=== PATIENT | male | born 1955 | race African-American/Black ===

== ENCOUNTER 2020-04-11 11:56 | Emergency (ER) | payer MEDICARE, OTHER ==
--- NOTE | 2020-04-11 12:10 | ED.PDOC ---
History of Present Illness - General Chief Complaint: General Time Seen by Provider: 04/11/20 12:06 Source: patient, RN notes reviewed, Vital Signs reviewed, EMS notes reviewed Exam Limitations: no limitations - History of Present Illness Initial Comments: Patient is a 65-year-old male with past medical history of paroxysmal A. fib, on amiodarone and Eliquis, and metastatic prostate cancer. He presented to the [place] ED last night for generalized weakness. He was found to be positive for COVID-19 and have a hemoglobin level of 6. White blood cell count was 17,000 and urine shows evidence of UTI and was given IV Rocephin. He also had a CT of the chest that showed evidence of metastatic disease but no acute findings. He was transfused 2 units of packed red cells and transferred here to be treated for Covid. Metabolic panel was unremarkable. Patient denies any blood in his stool. He does state he is on a blood thinner for atrial fibrillation. The plan was discussed with our hospitalist and patient was sent to ED to evaluate prior to admission. Patient denies any shortness of breath at this time. He denies any chest pain, fever or abdominal pain. Allergies/Adverse Reactions: Allergies NO KNOWN ALLERGY Allergy (Verified 04/11/20 12:29) Home Medications: Ambulatory Orders Cephalexin Monohydrate [Keflex] 500 mg PO QID 10 Days #40 cap 04/11/20 Methylprednisolone [Medrol Dose Wei] 4 mg PO DAILY 6 Days #21 tab 04/11/20 Review of Systems - Review of Systems Constitutional: States: malaise. Denies: chills, fever EENTM: Denies: blurred vision, ear pain, nose congestion Respiratory: Denies: short of breath Cardiology: Denies: chest pain, palpitations, syncope Gastrointestinal/Abdominal: Denies: abdominal pain, diarrhea, vomiting Musculoskeletal: States: other - chronic pain in bilateral knees Neurological: Denies: headache, paresthesia Hematologic/Lymphatic: Denies: easy bleeding, easy bruising All other Systems: Reviewed and Negative Family Medical History - Family History Mother Family History: No Known Physical Exam - Physical Exam General Appearance: Alert, Comfortable Ears, Nose, Throat: normal pharynx Neck: non-tender, full range of motion, supple Respiratory: chest non-tender, lungs clear, normal breath sounds, no respiratory distress Cardiovascular/Chest: regular rate, rhythm, no murmur Gastrointestinal/Abdominal: non tender, soft, no pulsatile mass Back Exam: no CVA tenderness, no vertebral tenderness Extremity: non-tender, no calf tenderness Neurologic: no motor/sensory deficits, alert, normal mood/affect Skin Exam: normal color, warm/dry Progress - Results/Orders Results/Orders: EKG NSR, rate 93, nml intervals, nonspecific ST abnormality Reviewed labs from transferring facility. Respiratory panel was positive only for Covid. White blood cell count 17,000, hemoglobin 6, platelets 265, sodium 136, potassium 3.8, chloride 105, BUN 22, creatinine 1.5, glucose 141, urinalysis shows 30-50 white blood cells. He was treated with 1 g of IV Rocephin and received 2 units of packed red blood cells. CT of the showed metastatic disease, but no sign of infection. D/W hospitalist, Yaquelin Agosto. Pt has been accepted to [facility]. They will be able to take him on COVID wing for continued treatmentand supplemental O2 as needed. Hospital has been working on this case. Pt has been stable in ED. No sign of GI bleed. H/H improved post infusion. Pt agrees with transfer to [facility] for continue care of Covid and UTI and to begin PT. Treated with Decadron and Remdesivir in ED. Previously given Rocephin for UTI at previous facility. No hypoxia or respiratory distress. Will continue supplemental O2 as need at SNF. Will trat with medrol dose pack and keflex. 04/11/20 12:19 Remdesivir 200 mg Sodium Chloride 0.9% 250Ml [NS 250ml] 250 ml IVPB ONCE Laboratory Results - last 24 hr 04/11/20 12:35 WBC 13.5 H RBC 3.30 L Hgb 7.5 L* Hct 24.1 L MCV 73.2 L MCH 22.6 L MCHC 30.9 L RDW 21.9 H Plt Count 255 MPV 7.8 Absolute Neuts (auto) 12.90 H Absolute Lymphs (auto) 0.40 L Absolute Monos (auto) 0.10 L Absolute Eos (auto) 0.00 Absolute Basos (auto) 0.00 Neutrophils % 96.0 H Neutrophils % (Manual) 70.0 Lymphocytes % 2.9 L Lymphocytes % (Manual) 1.0 Monocytes % 0.9 L Monocytes % (Manual) 0.0 Eosinophils % 0.1 L Basophils % 0.1 Band Neutrophils 26.0 H* Metamyelocytes 3.0 H Hypochromia 3+ Platelet Estimate Normal Polychromasia 1+ Poikilocytosis 2+ Anisocytosis 3+ Microcytosis 1+ Departure - Departure Clinical Impression: COVID-19, Prostate cancer metastatic to bone Urinary tract infection Qualifiers: Urinary tract infection type: acute cystitis Hematuria presence: without hematuria Qualified Code(s): N30.00 - Acute cystitis without hematuria Anemia Qualifiers: Anemia type: unspecified type Qualified Code(s): D64.9 - Anemia, unspecified Time of Disposition: 13:14 Disposition: Discharge to SNF Condition: Fair Departure Forms: ED Discharge - Pt. Copy, Patient Portal Self Enrollment Instructions: Coronavirus Disease 2019 (COVID-19), Urinary Tract Infection, Adult (DC) Diet: resume usual diet Activity: as per physical therapy Prescriptions: Cephalexin Monohydrate [Keflex] 500 mg PO QID 10 Days #40 cap Methylprednisolone [Medrol Dose Wei] 4 mg PO DAILY 6 Days #21 tab Home Medications: Ambulatory Orders Cephalexin Monohydrate [Keflex] 500 mg PO QID 10 Days #40 cap 04/11/20 Methylprednisolone [Medrol Dose Wei] 4 mg PO DAILY 6 Days #21 tab 04/11/20
[2020-04-11] MEDS ORDERED: REMDESIVIR 200 MG in SODIUM CHLORIDE 0.9% 250ML 250 ML IVPB ONE (12:19)
[2020-04-11] MEDS ORDERED: DEXAMETHASONE INJ 10 MG/ML VIAL IV ONE (12:19)
[2020-04-11 12:42] VITALS: TEMP 97.7
[2020-04-11 19:25] VITALS: BP 132/79; O2SAT 97
== END 2020-04-11 15:15 ==
LOC: ER 11:56
DX: U07.1 COVID-19 (principal); N30.00 Acute cystitis without hematuria; Z85.46 Personal history of malignant neoplasm of prostate; C79.51 Secondary malignant neoplasm of bone; D63.0 Anemia in neoplastic disease
CPT/HCPCS: 36415; 85025; 93005; J1100; J7050

== ENCOUNTER 2020-04-24 15:56 | Emergency (ER) | payer MEDICARE ==
--- NOTE | 2020-04-24 16:02 | ED.PDOC ---
History of Present Illness - General Time Seen by Provider: 04/24/20 16:01 Source: patient Additional Information: PATIENT SENT FOR ABNORMAL LAB, NO OTHER REASON PER EMS - History of Present Illness Initial Comments: PATIENT WITH METASTATIC BONE CANCER, SENT FROM THE CARE HOME FOR CHRONIC ANEMIA. Allergies/Adverse Reactions: Allergies NO KNOWN ALLERGY Allergy (Verified 04/11/20 12:29) Home Medications: Ambulatory Orders Cephalexin Monohydrate [Keflex] 500 mg PO QID 10 Days #40 cap 04/11/20 Methylprednisolone [Medrol Dose Wei] 4 mg PO DAILY 6 Days #21 tab 04/11/20 Past Medical History (General) - Patient Medical History Hx Cancer: Yes - prostate, metastatic Family Medical History - Family History Mother Family History: No Known Progress - Progress Progress: 04/24/20 17:45 DISCUSSED ON THE PHONE WITH DR AREVALO X [address] HAYWOOD. PATIENT WITH ASYMPTMATIC APLASTIC ANEMIA AND WILL NEED TRANSFUSED AT SOME POINT, BUT IS NOT A MEDICAL EMERGENCY AND CAN BE SCHEDULED THRU OUT PATIENT INFUSION. OFFERED TO SET THIS UP FOR DR AREVALO, THE PATIENT SAID THAT HE WOULD PREFER THIS. DR. AREVALO STATES HE WANTS TO TRANSFER PATIENT TO [place] TO RECEIVE TRANSFUSION. DR AREVALO ACKNOLEDGES HE THAT IT NOT A MEDICAL EMERGENCY, BUT HE STATES HE WANTS TO TRANSFER FOR SOCIAL REASONS, "TO GET THE PATIENT CLOSER TO FAMILY" PATIENT STATES HE PREFERS TO STAY HERE AT [facility] AND GET TRANFUSED TOMORROW. DR. AREVALO CALLED BACK AND TALKED TO PATIENT, NOW PATIENT WANTS TO BE TRANFERED TO [place], "TO BE CLOSER TO FAMILY". AT PATIENTS REQUEST, HE IS BEING TRANFERED TO [facility]. Departure - Departure Clinical Impression: Chronic anemia, Prostate cancer metastatic to bone Time of Disposition: 16:56 Disposition: Transfer to Hospital Condition: Good Instructions: Aplastic Anemia Referrals: Shonna Arevalo MD [Physicians] - 1-2 Weeks ELMER ZAMBRANO [Referring] - 1-2 Weeks Home Medications: Ambulatory Orders Cephalexin Monohydrate [Keflex] 500 mg PO QID 10 Days #40 cap 04/11/20 Methylprednisolone [Medrol Dose Wei] 4 mg PO DAILY 6 Days #21 tab 04/11/20 Additional Instructions: ATTEMPTED TO CONTACT DR AREVALO OFFICE USING PHYSICIAN LINE, NO ANSWER. CONTACTED DR ZAMBRANO, STATES HE WILL SET UP OUTPATIENT TRANSFUSION FOR THE PATIENT. PATIENT DOES NOT NEED EMERGENCY TRANSFUSION TODAY. HE IS ASYMPTOMATIC.
[2020-04-24 21:14] VITALS: BP 115/70; TEMP 97.4; O2SAT 97
== END 2020-04-24 20:45 | disposition short-term general hospital (02) ==
LOC: ER 15:56
DX: D63.0 Anemia in neoplastic disease (principal); C61 Malignant neoplasm of prostate; C79.51 Secondary malignant neoplasm of bone

== ENCOUNTER → 2020-05-30 | Outpatient (CLI) | payer MEDICARE, OTHER | LOC: GOCC 11:48 | PROVIDERS: ATTEND General Practice | DX: R34 Anuria and oliguria (principal) ==

== ENCOUNTER 2020-06-09 09:23 | Emergency (ER) | payer MEDICARE, OTHER ==
--- NOTE | 2020-06-09 09:48 | ED.PDOC ---
History of Present Illness - General Chief Complaint: Neuro Symptoms/Deficits Time Seen by Provider: 06/09/20 09:24 Source: patient, RN notes reviewed, Vital Signs reviewed, EMS notes reviewed, EMS, [facility] records, old records Exam Limitations: no limitations - History of Present Illness Initial Comments: Pleasant 65 yo M hx of anemia, prostate cancer, afib on amiodarone, DM comes in with 3 days of not feel well and AMS. Complains of pain over soreness over sacrum which he has a known decubitus ulcer. Denies chest pain, shortness of breath. Over the past three days has been drinking water, but has not had much urine output per nursing staff at [facility]. Moura placed, still with minimal output. When patient arrived he is awake, alert oriented to person, place and time. He is hypotensive with systolic BP 70. Timing/Duration: other - 3 days Severity: moderate Improving Factors: nothing Allergies/Adverse Reactions: Allergies NO KNOWN ALLERGY Allergy (Verified 04/11/20 12:29) Home Medications: Ambulatory Orders Abiraterone Acetate 1,000 mg PO DAILY 06/09/20 Acetaminophen [Non-Aspirin Extra Strengt] 1,000 mg PO Q6H PRN 06/09/20 Amiodarone HCl [Amiodarone Hydrochloride] 200 mg PO DAILY 06/09/20 Apixaban [Eliquis] 5 mg PO DAILY 06/09/20 Benzonatate 200 mg PO Q8H PRN 06/09/20 Docusate Sodium 100 mg PO BID 06/09/20 Duloxetine HCl 30 mg PO DAILY 06/09/20 Ferrous Sulfate 325 mg PO DAILY 06/09/20 Gabapentin 600 mg PO TID 06/09/20 Guaifenesin [Guaifenesin ER] 600 mg PO Q12H PRN 06/09/20 HYDROcodone 7.5MG/APAP 325MG [[place] 7.5/325] 1 tab PO Q6H PRN 06/09/20 Ibuprofen 600 mg PO Q8H PRN 06/09/20 Insulin Aspart [Novolog Flexpen] 10 unit SC AC 06/09/20 Insulin Detemir [Levemir] 10 unit SUBCU BEDTIME 06/09/20 Lisinopril 10 mg PO DAILY 06/09/20 Metoprolol Tartrate 25 mg PO BID 06/09/20 Mirtazapine [Remeron] 30 mg PO BEDTIME 06/09/20 Nystatin (Topical) [Nystatin] 100,000 unit TOP Q12H 06/09/20 Ondansetron [Ondansetron Odt] 4 mg PO Q6H PRN 06/09/20 Pantoprazole Sodium [Pantoprazole Sodium Dr] 40 mg PO DAILY 06/09/20 Polyethylene Glycol 3350 [Polyethylene Glycol] 17 gm PO DAILY 06/09/20 Potassium Chloride Microencaps [Potassium Chloride Cr] 20 meq PO DAILY 06/09/20 Prednisone 5 mg PO BID 06/09/20 Promethazine HCl 12.5 mg PO Q6H PRN 06/09/20 Review of Systems - Review of Systems Constitutional: States: malaise, weakness. Denies: chills, fever EENTM: Denies: blurred vision, throat pain, mouth pain Respiratory: States: cough. Denies: orthopnea, short of breath, stridor Cardiology: Denies: chest pain, palpitations, syncope Gastrointestinal/Abdominal: Denies: abdominal pain, diarrhea, nausea, vomiting Genitourinary: States: other - decrease UO. Denies: dysuria, frequency, hematuria Musculoskeletal: States: muscle pain Skin: States: rash - Dec ulcer Neurological: States: see HPI. Denies: headache, numbness, weakness Endocrine: Denies: increased urine, unexplained weight gain, unexplained weight loss Hematologic/Lymphatic: Denies: blood clots, easy bleeding, easy bruising Past Medical History (General) - Patient Medical History Hx Seizures: No Hx Stroke: No Hx Dementia: No Hx Asthma: No Hx of COPD: No Hx Cardiac Disorders: Yes - a-fib Hx Congestive Heart Failure: No Hx Hypertension: Yes Hx Diabetes: Yes Hx Gastroesophageal Reflux: No Hx Renal Disease: Yes Hx Cancer: Yes - prostate, metastatic to bone - Social History Hx Alcohol Use: No Hx Substance Use: No Hx Substance Use Treatment: No Family Medical History - Family History Mother Family History: No Known Physical Exam - Physical Exam General Appearance: Alert, Comfortable, Well Developed, Well Groomed, Well Hydrated, Well Nourished Eye Exam: bilateral normal Ears, Nose, Throat: normal ENT inspection Neck: non-tender, full range of motion, supple, normal inspection Respiratory: chest non-tender, normal breath sounds, no respiratory distress, no accessory muscle use, rales, rhonchi Cardiovascular/Chest: normal peripheral pulses, regular rate, rhythm, no murmur, other - 2+ pedal edema Peripheral Pulses: radial,right: 2+, radial,left: 2+, dorsalis pedis,right: 1+, dorsalis pedis,left: 1+ Gastrointestinal/Abdominal: normal bowel sounds, non tender, soft, no organomegaly, no pulsatile mass Rectal Exam: normal exam, normal rectal tone, heme negative stool, other - sacral ulcer noted. Back Exam: normal inspection, no CVA tenderness, no vertebral tenderness Extremity: normal range of motion, non-tender, normal inspection, no calf tenderness, pedal edema Neurologic: no motor/sensory deficits, alert, normal mood/affect, oriented x 3 Skin Exam: normal color, warm/dry, other - dry, decubitus ulcer as noted above (grade 2-3) Progress - Progress Progress: 06/09/20 11:02 partial ddx: anemia, gi bleed, pneumonia, sepsis, uti, renal failure, amioadrone SE, others considered. PSI score 185 CURB-65 score 4 Crcl 35 baseline Cr 0.8, baseline Hgb 7-8, baseline WBC 10 (all labs from prior admission one month ago when patient had covid). 06/09/20 11:38 patient has CHRONIC anemia, baseline 7-8, has had multiple transfusion. Stool negative for blood. will transfuse. two ordered, only one unit in process prior to transfer. hyperkalemia treated with andrea gluconate, albuterol, glucose/insulin, kayexalate. Will hold off on lasix due to BRANDEN and no urine output. patient does have inverted T waves however, this is not explained by hyperkalemia. Patient given cefepime. After 1.5 L IVF BP improved from 70-105 systolic. CXR shows concern for pneumonia. Do not have urine output yet. Will transfer to [facility] for higher level of care. The data reviewed when caring for this patient included: nurse notes, prior records, etc. The history and assessments from nurses notes were reviewed and considered, and the patient's home medication list was also reviewed and considered. My assessment and the results of testing completed here in the ED were discussed with the patient. All questions were answered, and they express understanding of my assessment and the plan. Patient was transferred in stable condition Ro Farrell DO #[id number] 06/09/20 11:50 - Results/Orders Results/Orders: bedside US shows moura in place, bladder is decompressed. 06/09/20 09:25 URINALYSIS Stat 06/09/20 10:14 Acetaminophen [Tylenol] 650 mg PO ONCE ONE diphenhydrAMINE HCL [Benadryl] 12.5 mg IV ONCE ONE 06/09/20 10:30 Sodium Chloride 0.9% 500Ml [NS 500ml] 500 ml IVS .KVO 06/09/20 10:56 PACKED CELLS,LR Stat TYPE AND SCREEN Stat Sodium Chloride 0.9% 1000ML [Ns 1000 ml] 1,000 ml IVS STAT BLOOD CULTURE Stat 06/09/20 11:01 Cefepime [Maxipime] 2 gm Sodium Chl 0.9% 100Ml Mini-Bag [NS 100ml MINI-BAG+] 100 ml IVPB ONCE Laboratory Results WBC 23.2 K/mm3 (4.8-10.8) H* 06/09/20 09:54 RBC 2.96 M/mm3 (4.70-6.10) L 06/09/20 09:54 Hgb 6.6 gm/dL (14.0-18.0) L* 06/09/20 09:54 Hct 21.5 % (42.0-52.0) L 06/09/20 09:54 MCV 72.7 fl (80.0-94.0) L 06/09/20 09:54 MCH 22.4 pg (27.0-31.0) L 06/09/20 09:54 MCHC 30.8 g/dL (33.0-37.0) L 06/09/20 09:54 RDW 19.6 % (11.5-14.5) H 06/09/20 09:54 Plt Count 263 K/mm3 (130-400) 06/09/20 09:54 MPV 8.0 fl (7.40-10.4) 06/09/20 09:54 Absolute Neuts (auto) [employer] Project Manager 06/09/20 09:54 Absolute Lymphs (auto) Hvac Project Manager 06/09/20 09:54 Absolute Monos (auto) Hvac Project Manager 06/09/20 09:54 Absolute Eos (auto) Hvac Project Manager 06/09/20 09:54 Absolute Basos (auto) Hvac Project Manager 06/09/20 09:54 Neutrophils % Hvac Project Manager 06/09/20 09:54 Neutrophils % (Manual) 80.0 % (42.0-78.0) H 06/09/20 09:54 Lymphocytes % Hvac Project Manager 06/09/20 09:54 Lymphocytes % (Manual) 5.0 % 06/09/20 09:54 Monocytes % Hvac Project Manager 06/09/20 09:54 Monocytes % (Manual) 3.0 % 06/09/20 09:54 Eosinophils % Hvac Project Manager 06/09/20 09:54 Basophils % Hvac Project Manager 06/09/20 09:54 Band Neutrophils 12.0 % (0-2) H* 06/09/20 09:54 Platelet Estimate Normal (NORMAL) 06/09/20 09:54 Normal RBC Morphology 3+aniso 2+hypochromia 2+microcytosis 2+poikilocytosis 1+ovalocytes 1+target cell 06/09/20 09:54 Normal RBC Morphology 3+aniso 2+hypochromia 2+microcytosis 2+poikilocytosis 1+ovalocytes 1+target cell 06/09/20 09:54 Normal RBC Morphology 3+aniso 2+hypochromia 2+microcytosis 2+poikilocytosis 1+ovalocytes 1+target cell 06/09/20 09:54 Normal RBC Morphology 3+aniso 2+hypochromia 2+microcytosis 2+poikilocytosis 1+ovalocytes 1+target cell 06/09/20 09:54 Normal RBC Morphology 3+aniso 2+hypochromia 2+microcytosis 2+poikilocytosis 1+ovalocytes 1+target cell 06/09/20 09:54 Normal RBC Morphology 3+aniso 2+hypochromia 2+microcytosis 2+poikilocytosis 1+ovalocytes 1+target cell 06/09/20 09:54 PT 14.6 SECONDS (9.0-10.9) H 06/09/20 09:54 INR 1.47 (0.9-1.15) H 06/09/20 09:54 PTT (SP) 40.5 SECONDS (21.8-31.6) H 06/09/20 09:54 Sodium 131 mmol/L (135-145) L 06/09/20 09:54 Potassium 6.1 mmol/L (3.6-5.0) H 06/09/20 09:54 Chloride 103 mmol/L (101-111) 06/09/20 09:54 Carbon Dioxide 18 mmol/L (21-31) L 06/09/20 09:54 Anion Gap 16.1 (12-18) 06/09/20 09:54 BUN 57 mg/dL (7-18) H 06/09/20 09:54 Creatinine 3.28 mg/dL (0.6-1.3) H 06/09/20 09:54 BUN/Creatinine Ratio 17.4 (10-20) 06/09/20 09:54 Random Glucose 120 mg/dL (70-105) H 06/09/20 09:54 Serum Osmolality 279.7 mOsm/L (275-295) 06/09/20 09:54 Lactic Acid 2.6 mmol/L (0.5-2.2) H* 06/09/20 09:54 Calcium 8.2 mg/dL (8.4-10.2) L 06/09/20 09:54 Total Bilirubin 0.9 mg/dL (0.2-1.0) 06/09/20 09:54 AST 30 IU/L (10-42) 06/09/20 09:54 ALT 21 IU/L (10-60) 06/09/20 09:54 Alkaline Phosphatase 544 IU/L (42-121) H 06/09/20 09:54 Troponin I 0.02 ng/mL (0.01-0.05) 06/09/20 09:54 B-Natriuretic Peptide 78.0 pg/ml (0-100) 06/09/20 09:33 Serum Total Protein 7.1 gm/dL (6.4-8.2) 06/09/20 09:54 Albumin 1.9 g/dl (3.2-5.5) L 06/09/20 09:54 Globulin 5.2 gm/dL (2.3-3.5) H 06/09/20 09:54 Albumin/Globulin Ratio 0.4 (1.1-1.9) L 06/09/20 09:54 TSH 5.13 uIU/mL (0.34-5.60) 06/09/20 09:54 Stool Occult Blood Negative (NEGATIVE) 06/09/20 10:22 Patient ABO/Rh O POSITIVE 06/09/20 10:56 Crossmatch See Detail 06/09/20 10:56 - EKG/XRAY/CT EKG: Sinus - hr 79, nonspecific ST T wave Chg - t wave inversion 1 and avL (new), q waves lead III (new) XRAY: elbow - * Suspect bilateral pneumonia, possibly viral. Differential diagnosis includes pneumonitis and mild pulmonary vascular congestion. Departure - Departure Clinical Impression: Prostate cancer metastatic to bone, Chronic anemia Decubital ulcer Qualifiers: Pressure injury location: sacral region Pressure injury stage: unstageable Qualified Code(s): L89.150 - Pressure ulcer of sacral region, unstageable Acute renal failure (ARF) Qualifiers: Acute renal failure type: unspecified Qualified Code(s): N17.9 - Acute kidney failure, unspecified Pneumonia Qualifiers: Pneumonia type: due to unspecified organism Laterality: bilateral Lung location: unspecified part of lung Qualified Code(s): J18.9 - Pneumonia, unspecified organism Sepsis Qualifiers: Sepsis type: sepsis due to unspecified organism Sepsis acute organ dysfunction status: with acute organ dysfunction Severe sepsis acute organ dysfunction type: acute renal failure Acute renal failure type: unspecified Severe sepsis shock status: without septic shock Qualified Code(s): A41.9 - Sepsis, unspecified organism Time of Disposition: 11:54 Disposition: Transfer to Hospital Condition: Fair Departure Forms: ED Discharge - Pt. Copy, Patient Portal Self Enrollment Diet: diabetic diet Referrals: Elijah Arevalo MD [Primary Care Provider] - 1 Week Home Medications: Ambulatory Orders Abiraterone Acetate 1,000 mg PO DAILY 06/09/20 Acetaminophen [Non-Aspirin Extra Strengt] 1,000 mg PO Q6H PRN 06/09/20 Amiodarone HCl [Amiodarone Hydrochloride] 200 mg PO DAILY 06/09/20 Apixaban [Eliquis] 5 mg PO DAILY 06/09/20 Benzonatate 200 mg PO Q8H PRN 06/09/20 Docusate Sodium 100 mg PO BID 06/09/20 Duloxetine HCl 30 mg PO DAILY 06/09/20 Ferrous Sulfate 325 mg PO DAILY 06/09/20 Gabapentin 600 mg PO TID 06/09/20 Guaifenesin [Guaifenesin ER] 600 mg PO Q12H PRN 06/09/20 HYDROcodone 7.5MG/APAP 325MG [[place] 7.5/325] 1 tab PO Q6H PRN 06/09/20 Ibuprofen 600 mg PO Q8H PRN 06/09/20 Insulin Aspart [Novolog Flexpen] 10 unit SC AC 06/09/20 Insulin Detemir [Levemir] 10 unit SUBCU BEDTIME 06/09/20 Lisinopril 10 mg PO DAILY 06/09/20 Metoprolol Tartrate 25 mg PO BID 06/09/20 Mirtazapine [Remeron] 30 mg PO BEDTIME 06/09/20 Nystatin (Topical) [Nystatin] 100,000 unit TOP Q12H 06/09/20 Ondansetron [Ondansetron Odt] 4 mg PO Q6H PRN 06/09/20 Pantoprazole Sodium [Pantoprazole Sodium Dr] 40 mg PO DAILY 06/09/20 Polyethylene Glycol 3350 [Polyethylene Glycol] 17 gm PO DAILY 06/09/20 Potassium Chloride Microencaps [Potassium Chloride Cr] 20 meq PO DAILY 06/09/20 Prednisone 5 mg PO BID 06/09/20 Promethazine HCl 12.5 mg PO Q6H PRN 06/09/20 Critical Care Note - Critical Care Note Total Time (mins): 12 Transfer to Outside Facility - Transfer Information Decision to Transfer Date: 06/09/20 Decision to Transfer Time: 11:00 Reason for Transfer: specialized care not available Accepting Facility: [facility]
[2020-06-09] MEDS ORDERED: ACETAMINOPHEN 325 MG TAB PO ONE (10:14)
[2020-06-09] MEDS ORDERED: diphenhydrAMINE HCL 50 MG/ML VIAL IV ONE (10:14)
[2020-06-09] MEDS ORDERED: ALBUTEROL SULFATE 2.5 MG/3 ML VIAL NEB ONE (10:22)
[2020-06-09] MEDS ORDERED: CALCIUM GLUCONATE INJ 1 GM/10 ML VIAL IV ONE (10:22)
[2020-06-09] MEDS ORDERED: DEXTROSE 50% 25 GM/50 ML SYG IV ONE (10:22)
[2020-06-09] MEDS ORDERED: INSULIN, REG.(HUMAN) 100 U/ML VIAL IV ONE ×2 (10:22→10:29)
--- NOTE | 2020-06-09 10:23 | RAD ---
TECHNIQUE: Chest,1 View Chest radiograph, AP 1 view. HISTORY: MAIN ams COMPARISON: Chest x-ray April 24, 2020. FINDINGS: Lungs/Pleura: Interstitial and airspace opacities are scattered throughout both lungs mostly in the periphery. No consolidations. No pneumothorax. No effusion. Mediastinum, Leti: Unremarkable. Heart: Cardiac silhouette is within normal limits. Bones: No suspicious osseous lesions. Soft Tissues: Unremarkable. Other: None. IMPRESSION: * Suspect bilateral pneumonia, possibly viral. Differential diagnosis includes pneumonitis and mild pulmonary vascular congestion. Electronically signed by: John Perla 06/09/2020 10:22 AM [facility]
[2020-06-09] MEDS ORDERED: SODIUM CHLORIDE 0.9% 500ML 500 ML IVS SCH (10:30)
[2020-06-09] MEDS ORDERED: SODIUM CHLORIDE 0.9% 1000ML 1,000 ML IVS PRN (10:56)
[2020-06-09] MEDS ORDERED: CEFEPIME 2 GM in SODIUM CHL 0.9% 100ML MINI-BAG 100 ML IVPB ONE (11:01)
[2020-06-09] MEDS ORDERED: SOD POLYSTYRENE SULFONATE 15 GM/60 ML BTTL PO ONE (11:41)
[2020-06-09 12:28] VITALS: TEMP 97.7
[2020-06-09 12:50] VITALS: BP 97/52; O2SAT 93
== END 2020-06-09 12:40 | disposition short-term general hospital (02) ==
LOC: ER 09:23
DX: A41.9 Sepsis, unspecified organism (principal); N17.9 Acute kidney failure, unspecified; J18.9 Pneumonia, unspecified organism; C61 Malignant neoplasm of prostate; C79.51 Secondary malignant neoplasm of bone; D63.0 Anemia in neoplastic disease; L89.153 Pressure ulcer of sacral region, stage 3; R41.82 Altered mental status, unspecified; I95.9 Hypotension, unspecified; N18.9 Chronic kidney disease, unspecified; E11.22 Type 2 diabetes mellitus with diabetic chronic kidney disease; I12.9 Hypertensive chronic kidney disease with stage 1 through stage 4 chronic kidney disease, or unspecified chronic kidney disease; I48.91 Unspecified atrial fibrillation; Z20.822 Contact with and (suspected) exposure to COVID-19; Z92.21 Personal history of antineoplastic chemotherapy; Z79.4 Long term (current) use of insulin; Z79.899 Other long term (current) drug therapy; Z79.01 Long term (current) use of anticoagulants
CPT/HCPCS: 36415; 71045; 80053; 82270; 83605; 83880; 84443; 84484; 85025; 85610; 85730; 86922; 87040; 87502; 87635; 94640; J0692; J1200; J7030; J7040; J7050; J7611; P9016